=== PATIENT | female | born 1965 | race Caucasian/White ===

== ENCOUNTER 2023-06-07 20:15 | Emergency (ER) | payer BC, SELFPAY ==
[2023-06-07 20:17] VITALS: BP 129/77
--- NOTE | 2023-06-07 20:54 | ED.MUSCINJ ---
HPI-Injury
General
Chief Complaint: Fall
Source: patient
Exam Limitations: none
Time Seen by Provider: 06/07/23 20:39
Travel History
Have you had any contact with someone who has COVID-19?: No
Do you have any symptoms of coronavirus? Fever > 100 degrees, chills, cough, shortness of breath, sore throat, loss of taste or smell, muscle aches, or headache?: No
History of Present Illness-Injury
Is this injury a work related problem?: No
Is pt an associate of [facility]?: No
Initial Injury comments:
This is a 58 year old female that comes in with c/o bilateral forearm pain. States that she was out walking the dog and he saw another dog and pulled her down. States that she put both her arms out and to brake her fall. States that her forearms are
sore. L>R. Denies hitting her head or any LOC. Denies any fever, chills, chest pain, SOB, abd, nausea, vomiting, diarrhea, headache, dizziness.
Past History
Past History
ED Past Medical History: None; Negative Asthma, HTN, Hypercholesterolemia, NIDDM or [place]
ED Past Surgical History: None
Social History
Tobacco: Non-smoker
Alcohol: None
Personal:
Living: with family
Review of Systems
Review of Systems
All Other Systems: ROS reviewed and negative except as documented in HPI and ROS
Constitutional: Reports no symptoms; Denies fever or chills
EENT: Reports no symptoms
Respiratory: Reports no symptoms; Denies cough or trouble breathing
Cardiac: Reports no symptoms; Denies chest pain
ABD/GI: Reports no symptoms; Denies abdominal pain, nausea, vomiting or diarrhea
: Reports no symptoms; Denies dysuria, frequency or urgency
Musculoskeletal: Reports other (Bilateral forearm pain)
Skin: Reports no symptoms
Neurological: Reports no symptoms; Denies dizzy or headache
Psychiatric: Reports no symptoms
Musculoskeletal Injury Exam
Musculoskeletal Injury Exam
Right Lower Arm:
Pain with Movement?: Mild
Tender to palpation?: None
Soft tissue swelling?: None
External deformity and angulation?: None
Joint effusion?: None
Contusion?: None
Hematoma-local bleeding into tissue?: None
Strain- Sprain- Tear (Connective tissue injury)?: None
Crepitus with movement?: No
Joint instability?: No
Malalignment/deformity?: No
Range of motion: Full
Distal skin color and temperature: normal-warm & good color
Capillary Refill: normal
Normal distal neurovascular exam?: Yes
Left Lower Arm:
Pain with Movement?: Mild
Tender to palpation?: None
Soft tissue swelling?: None
External deformity and angulation?: None
Joint effusion?: None
Contusion?: None
Hematoma-local bleeding into tissue?: None
Strain- Sprain- Tear (Connective tissue injury)?: None
Crepitus with movement?: No
Joint instability?: No
Malalignment/deformity?: No
Range of motion: Full
Distal skin color and temperature: normal-warm & good color
Capillary Refill: normal
Normal distal neurovascular exam?: Yes
Phy Exam
General Physical Exam
General Presentation: well appearing and no apparent distress
General age: appears stated age
General Skin: warm and dry
General Habitus: normal
General Mental: alert
General Hydration: appears well hydrated
Eye Exam
Eye Exam: EOMI
Musculoskeletal Exam
Musculoskeletal Exam: full ROM, no edema and other (Negative for any shoulder tenderness. Able to flex elbows without discomfort. Negative for discomfort with palpation over the forearms, wrist and able to move fingers. Slight discomfort with
rotation. negative for any swelling)
Skin Exam
Skin Exam: normal color, warm/dry, no rash and no petechia
Psychiatric Exam
Psychiatric Exam: normal mood/affect
Injury Course
Orders/Labs/Results
Orders:
Orders
06/07/23 20:19
CR Forearm - Left 2 View Urgent
Comment:
Reason For Exam: pain
Forearm, Right 2 View [CR Forearm - Right 2 View] Urgent
Comment:
Reason For Exam: pain
06/07/23 20:54
Ibuprofen [Motrin] 600 mg PO NOW STA
MDM/Problems Addressed
Differential Diagnosis Includes:
contusion both arms, wrist Sprain
MDM/Problems Addressed:
This is a 58 year old female that comes in with c/o bilateral arm pain. States that her dog pulled her down and used her arms to brace herself when she fell.
Will get X-rays of both forearms.
Explained to patient that her X-rays are negative for any fractures. This is most likely a contusion. Encouraged patient to use Tylenol and Ibuprofen for pain. Return with any concerns .
Chronic conditions affecting care:
NA
Acute Exacerbation and/or Progression of Chronic Illness:
NA
*Radiology
Radiology exam reviewed: radiology read reviewed (right forearm- No acute osseous abnormality. Left Forearm=No acute osseous abnormality. )
*Pulse Oximetry
Patient hypoxic: no
*EKG
Interpreted by ED Provider?: NA
Rate: EKG- N/A
*[employer]ributed [employer] Consultant Interpretation
Rate: [employer] Consultant- N/A
*Critical Care Note
Total Time (30-74mins, 75-104mins- exclusive of procedures): Not Applicable
ED Attending Note
-
Portions of this chart may have been created with voice recognition software.� Occasional wrong word or��sound alike� substitutions may have occurred due to the inherent limitations of voice recognition software.
Discharge Plan
Departure
Patient Disposition: Home (Routine Discharge)
Date of Disposition: 06/07/23
Time of Disposition: 21:05
Patient with high blood pressure during this ER visit?: No
Condition: Good
Covid-19: Not Applicable
Discharge Problem:
Forearm sprain
Instructions: Wrist Sprain (DC)
Prescriptions:
No Action
No Current Medications
Activity Restrictions/Additional Instructions:
As discussed, your X-rays are both negative for any fractures or dislocation. Please use ice to any area that is sore. You may use Tylenol 1000mg every 6 hours for pain and alternate with Ibuprofen 600mg every 6 hours for pain. You may use your
Medication that you have at home for pain instead of the Tylenol and Ibuprofen. Follow up with family doctor for recheck. IF YOU HAVE ANY OTHER CONCERNS PLEASE RETURN TO THE EMERGENCY ROOM.
Interventions
Interventions:
*Risk Screen - Suicide Last Done: 06/07/23 20:17
*General Assessment Last Done: 06/07/23 20:17
*Neglect/Abuse Screening Last Done: 06/07/23 20:17
ED- Fall Risk Assessment Last Done: 06/07/23 20:50
*ED COVID-19 Vaccine History Last Done: 06/07/23 20:17
ED-Musculoskeletal Assessment Last Done: 06/07/23 20:50
ED- Neurological Assessment Last Done: 06/07/23 20:50
ED-Skin Assessment Last Done: 06/07/23 20:50
[2023-06-07] MEDS: MOTRIN 600 MG PO (20:57)
== END 2023-06-07 21:13 | disposition home or self-care (01) ==
LOC: EMR 20:15
PROVIDERS: EMERGENCY PHYSICIAN Emergency Medicine; FAMILY PHYSICIAN Family Medicine
DX: S56.911A Strain of unspecified muscles, fascia and tendons at forearm level, right arm, initial encounter (principal); W19.XXXA Unspecified fall, initial encounter; Y93.K1 Activity, walking an animal
CPT/HCPCS: 99283; 73090

== ENCOUNTER → 2024-03-28 14:58 | Outpatient (REF) | payer BC, SELFPAY | LOC: MRI 3T 14:58 | PROVIDERS: ATTENDING PHYSICIAN Family Medicine | DX: R92.30 Dense breasts, unspecified (principal); R92.0 Mammographic microcalcification found on diagnostic imaging of breast; Z91.89 Other specified personal risk factors, not elsewhere classified | CPT/HCPCS: 77049; A9585 ==

== ENCOUNTER → 2024-04-04 14:42 | Outpatient (REF) | payer BC, SELFPAY | LOC: WDC 14:42 | PROVIDERS: ATTENDING PHYSICIAN Family Medicine | DX: R92.8 Other abnormal and inconclusive findings on diagnostic imaging of breast (principal); Z80.3 Family history of malignant neoplasm of breast; R92.0 Mammographic microcalcification found on diagnostic imaging of breast | CPT/HCPCS: 76642 ==

== ENCOUNTER → 2024-04-28 07:11 | Outpatient (REF) | payer BC, SELFPAY ==
--- NOTE | 2024-04-28 13:46 | OID.BR.INTR ---
[facility] Breast Navigator - Initial
- -
Date of Contact: 04/28/24
Met with patient. Patient given written information on navigator services available at [facility]. Will follow up as needed per protocol.
== END ==
LOC: WDC 07:11
PROVIDERS: ATTENDING PHYSICIAN Family Medicine
DX: N63.20 Unspecified lump in the left breast, unspecified quadrant (principal); N63.24 Unspecified lump in the left breast, lower inner quadrant
CPT/HCPCS: 88305; 19083; A4648